=== PATIENT | male | born 1940 | race Caucasian/White ===

== ENCOUNTER 2017-01-15 06:33 | Emergency (ER) | payer MEDICARE ==
[~2017-01-15] VITALS: Ht 167.6 cm; Wt 70.3 kg
[~2017-01-15 06:33] MED LIST: ASPI-COR81 M1 PO; DAYPRO600 M1 PO; KEFLEX500 MG PO; LIPITOR80 MG PO; LISINOPRIL10 MG PO; LOPRESSOR50 MG PO; METOPROLOL SR50 MG PO; PREDNICOT20 MG PO
[2017-01-15 07:05] VITALS: BP 142/68
[2017-01-15 07:14] LABS: BASO % 0.2 % (0.0-1.0); EOS # 0.3 10*3/uL (0.0-0.4); EOS % 3.2 % (1.0-4.0); HEMATOCRIT 35.3 % (42.0-52.0); HEMOGLOBIN 11.7 g/dl (14.0-18.0); IG # 0.1 10*3/uL (0.0-0.1); LYMPH # 0.7 10*3/uL (1.3-4.4); LYMPH % 8.8 % (27.0-41.0); MEAN CELL VOLUME 89.8 fl (80.0-94.0); MEAN CORPUSCULAR HGB 29.8 pg (27.0-31.0); MEAN CORPUSCULAR HGB CONC 33.1 g/dl (33.0-37.0); MEAN PLATELET VOLUME 9.2 fl (9.6-12.3); MONO # 0.6 10*3/uL (0.1-1.0); MONO % 7.8 % (3.0-9.0); NEUT # 6.5 10*3/uL (2.3-7.9); NEUT % 79.3 % (47.0-73.0); PLATELET COUNT AUTOMATED 230 10*3/uL (130-400); RED BLOOD COUNT 3.93 10*6/uL (4.50-5.90); WHITE BLOOD COUNT 8.2 10*3/uL (4.8-10.8)
[2017-01-15 07:42] LABS: BUN 16 mg/dl (7-24); CARBON DIOXIDE 27 mmol/L (21-32); CHLORIDE 104 mmol/L (98-107); EST GLOM FILT AFRICAN AMERICAN > 60 ml/min; GLUCOSE 100 mg/dL (65-99); SODIUM 140 mmol/L (136-145)
[2017-01-15] MEDS ORDERED: MOTION RELIEF25 M2 PO (08:04)
== END 2017-01-15 09:20 | disposition home or self-care (01) ==
LOC: ED 06:33
PROVIDERS: Emergency Medicine
DX: M19.012 Primary osteoarthritis, left shoulder (principal); H83.09 Labyrinthitis, unspecified ear; F17.200 Nicotine dependence, unspecified, uncomplicated; Z88.0 Allergy status to penicillin; Z79.82 Long term (current) use of aspirin

== ENCOUNTER → 2017-04-11 | Outpatient (CLI) | payer MEDICARE ==
[~2017-04-11] MED LIST changes: +MOTION RELIEF25 M2 PO
[2017-04-11 11:07] LABS: BUN 14 mg/dl (7-24); CARBON DIOXIDE 31 mmol/L (21-32); CHLORIDE 103 mmol/L (98-107); CHOLESTEROL 141 mg/dL (<200); EST GLOM FILT AFRICAN AMERICAN > 60 ml/min; GLUCOSE 113 mg/dL (65-99); HDL CHOLESTEROL 49 mg/dl (40-60); LDL CHOLESTEROL 75 mg/dL (9-159); POTASSIUM 4.2 mmol/L (3.5-5.1); SGOT/AST 21 IU/L (3-35); SGPT/ALT 19 U/L (12-78); SODIUM 138 mmol/L (136-145); TRIGLYCERIDES 87 mg/dl (<150); VLDL CHOLESTEROL 17 mg/dL (6-40)
== END | disposition home or self-care (01) ==
LOC: LAB 10:14
PROVIDERS: Internal Medicine Interventional Cardiology
DX: I10 Essential (primary) hypertension (principal); I25.10 Atherosclerotic heart disease of native coronary artery without angina pectoris; E78.2 Mixed hyperlipidemia

== ENCOUNTER → 2019-06-06 | Outpatient (CLI) | payer MEDICARE ==
[2019-06-06 10:26] LABS: ALBUMIN 3.5 gm/dl (3.1-4.5); ALKALINE PHOSPHATASE 126 U/L (45-117); BUN 16 mg/dl (7-24); CHLORIDE 100 mmol/L (98-107); CHOLESTEROL 133 mg/dL (<200); CREATININE 1.07 mg/dL (0.70-1.30); HDL CHOLESTEROL 50 mg/dl (40-60); LDL CHOLESTEROL 70 mg/dL (9-159); POTASSIUM 4.2 mmol/L (3.5-5.1); SGOT/AST 24 IU/L (3-35); SGPT/ALT 21 U/L (12-78); SODIUM 135 mmol/L (136-145); TOTAL PROTEIN 8.3 gm/dL (6.4-8.2); TRIGLYCERIDES 65 mg/dl (<150); VLDL CHOLESTEROL 13 mg/dL (6-40)
== END | disposition home or self-care (01) ==
LOC: LAB 09:31 → US 09:31
PROVIDERS: Internal Medicine Interventional Cardiology
DX: I65.23 Occlusion and stenosis of bilateral carotid arteries (principal); I25.10 Atherosclerotic heart disease of native coronary artery without angina pectoris; I25.2 Old myocardial infarction; E78.2 Mixed hyperlipidemia; I10 Essential (primary) hypertension; I77.9 Disorder of arteries and arterioles, unspecified; R09.89 Other specified symptoms and signs involving the circulatory and respiratory systems; Z95.5 Presence of coronary angioplasty implant and graft; Z98.890 Other specified postprocedural states

== ENCOUNTER → 2019-06-18 | Outpatient (CLI) | payer MEDICARE | END | disposition home or self-care (01) | LOC: CARD 00:45 | DX: I08.1 Rheumatic disorders of both mitral and tricuspid valves (principal); I25.10 Atherosclerotic heart disease of native coronary artery without angina pectoris; I25.2 Old myocardial infarction; E78.2 Mixed hyperlipidemia; I10 Essential (primary) hypertension; I77.9 Disorder of arteries and arterioles, unspecified; Z98.890 Other specified postprocedural states; Z95.5 Presence of coronary angioplasty implant and graft ==

== ENCOUNTER → 2019-12-11 | Outpatient (CLI) | payer MEDICARE | END | disposition home or self-care (01) | LOC: RAD 11:08 | DX: R04.2 Hemoptysis (principal); R07.0 Pain in throat ==

== ENCOUNTER → 2019-12-13 | Outpatient (CLI) | payer MEDICARE ==
[2019-12-13 10:40] LABS: CREATININE 0.94 mg/dL (0.70-1.30)
== END | disposition home or self-care (01) ==
LOC: CT 09:46 → LAB 09:46 → CT 10:00
PROVIDERS: Radiology Diagnostic Radiology
DX: R91.8 Other nonspecific abnormal finding of lung field (principal); R59.9 Enlarged lymph nodes, unspecified; D71 Functional disorders of polymorphonuclear neutrophils; R07.81 Pleurodynia; R04.2 Hemoptysis

== ENCOUNTER → 2019-12-19 | Outpatient (CLI) | payer MEDICARE ==
[2019-12-21 21:03] LABS: TB1 Ag VALUE 0.02 IU/mL (.)
== END | disposition home or self-care (01) ==
LOC: LAB 11:06
PROVIDERS: Internal Medicine Critical Care Medicine
DX: R91.8 Other nonspecific abnormal finding of lung field (principal); R04.2 Hemoptysis

== ENCOUNTER → 2019-12-28 | Day surgery (SDC) | payer MEDICARE ==
[~2019-12-28] VITALS: Ht 170.1 cm; Wt 61.2 kg
[2019-12-28 09:26] VITALS: BP 103/57
[2019-12-28 11:15] VITALS: BP 126/73
[2019-12-28 11:30] VITALS: BP 110/45
[2019-12-28 11:45] VITALS: BP 106/47
[2019-12-28 12:00] VITALS: BP 107/52
[2019-12-28 12:15] VITALS: BP 109/49
[2019-12-29 15:03] LABS: ACID FAST SPEC PROCESSING Concentration (.)
== END | disposition home or self-care (01) ==
LOC: SDC 12-27 11:00
PROVIDERS: Internal Medicine Critical Care Medicine
DX: R91.8 Other nonspecific abnormal finding of lung field (principal); J44.9 Chronic obstructive pulmonary disease, unspecified; I25.10 Atherosclerotic heart disease of native coronary artery without angina pectoris; K21.9 Gastro-esophageal reflux disease without esophagitis; I10 Essential (primary) hypertension; E78.5 Hyperlipidemia, unspecified; R04.2 Hemoptysis; I25.2 Old myocardial infarction; Z87.891 Personal history of nicotine dependence; Z79.82 Long term (current) use of aspirin; Z88.0 Allergy status to penicillin

== ENCOUNTER → 2019-12-31 | Outpatient (CLI) | payer MEDICARE ==
[2019-12-31 08:53] VITALS: BP 114/50
[2019-12-31 10:00] VITALS: BP 101/51; BP 95/49
[2019-12-31 10:15] VITALS: BP 95/49
[2019-12-31 10:30] VITALS: BP 90/49
[2019-12-31 10:45] VITALS: BP 91/45
[2019-12-31 10:57] VITALS: BP 91/45
== END | disposition home or self-care (01) ==
LOC: LAB 00:18 → EDSTATUS 09:30 → SDC 09:30 → LAB 09:30
PROVIDERS: Internal Medicine Critical Care Medicine
DX: R91.8 Other nonspecific abnormal finding of lung field (principal); E78.00 Pure hypercholesterolemia, unspecified; Z85.46 Personal history of malignant neoplasm of prostate; I10 Essential (primary) hypertension; I25.2 Old myocardial infarction; Z88.0 Allergy status to penicillin; Z82.49 Family history of ischemic heart disease and other diseases of the circulatory system; Z82.3 Family history of stroke

== ENCOUNTER 2020-06-09 13:43 | Inpatient (IN) | payer MEDICARE ==
[~2020-06-09] VITALS: Ht 162.6 cm; Wt 47.6 kg
[~2020-06-09 13:43] MED LIST changes: -LOPRESSOR50 MG PO; +Lopressor25 MG PO
[2020-06-09 13:56] VITALS: BP 129/82
[2020-06-09] MEDS ORDERED: DEXAMETHASONE4 MG PO (14:10)
[2020-06-09 15:06] LABS: HEMATOCRIT 40.8 % (42.0-52.0); MEAN CELL VOLUME 81.6 fl (80.0-94.0); MEAN CORPUSCULAR HGB 25.6 pg (27.0-31.0); MEAN CORPUSCULAR HGB CONC 31.4 g/dl (33.0-37.0); MEAN PLATELET VOLUME 8.8 fl (9.6-12.3); PLATELET COUNT AUTOMATED 141 10*3/uL (130-400); RED CELL DISTRI WIDTH 19.4 % (0-14.5)
[2020-06-09 15:18] LABS: ACT PARTIAL THROMBO TIME 25.4 SECONDS (20.0-32.1); INTERNATIONAL NORM RATIO 0.9 (2.0-3.5)
[2020-06-09 15:24] LABS: ALBUMIN 2.5 gm/dl (3.1-4.5); ALKALINE PHOSPHATASE 131 U/L (45-117); BUN 29 mg/dl (7-24); CHLORIDE 98 mmol/L (98-107); CREATININE 0.72 mg/dL (0.70-1.30); LIPASE 133 U/L (73-393); POTASSIUM 4.4 mmol/L (3.5-5.1); SGOT/AST 30 IU/L (3-35); SGPT/ALT 37 U/L (12-78); SODIUM 132 mmol/L (136-145); TOTAL PROTEIN 7.6 gm/dL (6.4-8.2)
[2020-06-09 15:35] LABS: TROPONIN I < 0.015 ng/ml (<0.045)
[2020-06-09 15:41] LABS: BURR CELLS MODERATE; TOTAL CELLS COUNTED 100 #CELLS
[2020-06-09 15:42] LABS: PLATELET SUFFICIENCY NORMAL (NORMAL)
[2020-06-09 17:58] VITALS: BP 132/80
[2020-06-09 19:00] VITALS: BP 124/79
--- NOTE | 2020-06-09 19:00 | NUR ---
A 79, admitted to 5E, under the services of SHAYAN Griffith DO with a diagnosis of HEMOPTYSIS. Chief complaint is HEMOPYTOSIS. Patient arrived via bed from ER. Monitor applied. Initial assessment completed. Vital signs taken and recorded. SHAYAN GRIFFITH DO notified of admission to the unit. Orders received. See assessment for past medical history, medications and allergies. Patient oriented to unit. Clothing/patient valuable form completed. JB FRANCO
--- NOTE | 2020-06-09 19:00 | NUR ---
Hep Lock discontinued, RAN. Site symptomatic, EDEMATOUS. Pressure applied. Sterile dressing applied. JB FRANCO
--- NOTE | 2020-06-09 19:00 | NUR ---
IV started left arm with #20 angiocath after 0 attempts. The IV site was prepped with Chloraprep. Heparin lock attached. IV solution NS infusing at 80 cc/hr. Sterile dressing applied. Patient tolerated precedure well. Procedure performed according to [facility] policy & procedure. JB FRANCO
--- NOTE | 2020-06-09 19:13 | NUR ---
NOTIFIED OF NEW CONSULT. PER IF PATIENT COUGHS UP ANY BLOOD HE WOULD LIKE A SAMPLE TAKEN.
--- NOTE | 2020-06-09 19:27 | NUR ---
AWARE THAT HOME MEDS ARE VERIFIED
--- NOTE | 2020-06-09 19:51 | NUR ---
DICUSSED CARE WITH DAUGHTER TERRANCE.
[2020-06-09 20:00] VITALS: BP 124/75
[2020-06-10] VITALS: BP 126/75
[2020-06-10 06:33] LABS: HEMATOCRIT 35.9 % (42.0-52.0); MEAN CELL VOLUME 82.3 fl (80.0-94.0); MEAN CORPUSCULAR HGB 25.7 pg (27.0-31.0); MEAN CORPUSCULAR HGB CONC 31.2 g/dl (33.0-37.0); MEAN PLATELET VOLUME 8.5 fl (9.6-12.3); PLATELET COUNT AUTOMATED 121 10*3/uL (130-400); RED BLOOD COUNT 4.36 10*6/uL (4.50-5.90); RED CELL DISTRI WIDTH 19.2 % (0-14.5); WHITE BLOOD COUNT 2.5 10*3/uL (4.8-10.8)
[2020-06-10 06:53] LABS: ALBUMIN 2.2 gm/dl (3.1-4.5); ALKALINE PHOSPHATASE 115 U/L (45-117); BUN 21 mg/dl (7-24); CHLORIDE 102 mmol/L (98-107); CREATININE 0.55 mg/dL (0.70-1.30); POTASSIUM 4.7 mmol/L (3.5-5.1); SGOT/AST 32 IU/L (3-35); SGPT/ALT 35 U/L (12-78); SODIUM 132 mmol/L (136-145); TOTAL PROTEIN 6.7 gm/dL (6.4-8.2)
[2020-06-10 06:55] LABS: DOHLE BODIES FEW; PLATELET SUFFICIENCY LOW (NORMAL); TOTAL CELLS COUNTED 100 #CELLS; TOXIC GRANULATION SLIGHT
[2020-06-10 06:56] LABS: BURR CELLS FEW
[2020-06-10 06:59] LABS: THYROID STIM HORMONE (HS) 0.407 uIU/ml (0.358-4.75)
[2020-06-10 08:00] VITALS: BP 130/70
--- NOTE | 2020-06-10 08:28 | NUR ---
PT RESTING IN BED. NO DISTRESS NOTED. WILL MONITOR
[2020-06-10 12:00] VITALS: BP 156/61
--- NOTE | 2020-06-10 12:04 | NUR ---
[employer] in to talk to patient. Patient states lives at HOME with SISTER. There are 10 steps in the home. Physician: LB NUNN Pharmacy: [facility] Home health services: NONE Patient's level of ADLs: INDEPENDENT Patient has working utilities: YES DME: NONE Follow-up physician's appointment after d/c: WILL BE MADE BY HOSPITALIST NURSE DIRECTOR ON DISCHARGE Does patient want to access PORTAL?: NO Discharge plan PT LIVES AT HOME WITH SISTER AND IS INDEPENDENT IN CARE. RECENTLY RECIEVED CHEMO AND RADIATION BUT DOES NOT KNOW EXACT DATES. DENIES HE WILL NEED ANY SERVICES. ON DISCHARGE PLANS TO RETURN HOME WITH SISTER. WILL CONTINUE TO FOLLOW. STATES HE WILL HAVE A RIDE HOME.. JAE ALLEN
[2020-06-10 16:00] VITALS: BP 136/78
[2020-06-10 20:00] VITALS: BP 121/66
[2020-06-11] VITALS: BP 130/65
[2020-06-11 06:14] LABS: HEMATOCRIT 37.5 % (42.0-52.0); MEAN CELL VOLUME 83.3 fl (80.0-94.0); MEAN CORPUSCULAR HGB CONC 31.2 g/dl (33.0-37.0); MEAN PLATELET VOLUME 8.4 fl (9.6-12.3); PLATELET COUNT AUTOMATED 121 10*3/uL (130-400); RED CELL DISTRI WIDTH 19.1 % (0-14.5)
[2020-06-11 06:32] LABS: CHLORIDE 103 mmol/L (98-107); SODIUM 135 mmol/L (136-145)
[2020-06-11 06:40] LABS: BUN 16 mg/dl (7-24); CREATININE 0.66 mg/dL (0.70-1.30)
[2020-06-11 06:59] LABS: BURR CELLS MODERATE; TOTAL CELLS COUNTED 100 #CELLS
[2020-06-11 07:00] LABS: OVALOCYTES FEW; PLATELET SUFFICIENCY LOW (NORMAL); POLYCHROMASIA SLIGHT; TOXIC GRANULATION SLIGHT
[2020-06-11 08:00] VITALS: BP 151/90
--- NOTE | 2020-06-11 08:24 | NUR ---
PHYSICAL THERAPY PT order recieved and chart reviewed. in to see patient at this time and pt had not yet eaten his breakfast yet, just arrived. Will follow after patient eats. Spoke with nsg. Madi Amador SPT Sury Oconnell PT
--- NOTE | 2020-06-11 08:27 | NUR ---
Patient not available for Occupational Therapy at this time as he is eating breakfast. Michelle Lopez OTR/l
[2020-06-11 08:28] LABS: BUN 15 mg/dl (7-24); CHLORIDE 101 mmol/L (98-107); CREATININE 0.68 mg/dL (0.70-1.30); SODIUM 134 mmol/L (136-145)
[2020-06-11 08:29] LABS: POTASSIUM 4.1 mmol/L (3.5-5.1)
--- NOTE | 2020-06-11 08:50 | NUR ---
PT RESTING IN BED. EATING BREAKFAST. NO DISTRESS NOTED. WILL MONITOR
--- NOTE | 2020-06-11 09:00 | NUR ---
PHYSICAL THERAPY Physical Therapy evaluation completed on 5th floor with full evaluation to follow. Recommend physical therapy per plan of care and home with family and home health services upon discharge. Thank you for this referral. Madi Amador SPT Sury Oconnell PT
--- NOTE | 2020-06-11 09:00 | NUR ---
Occupational Therapy evaluation completed on 5 with full eval to follow. Precautions include fall risk; bed/chair alarm,uses no assistive device to ambulate, unsteady in standing at times,low complexity level 73770. Recommend OT per POC and home with sister upon d/c with home health SN, OT,PT referral.s Thank you for this referral. Michelle Lopez OTR/l
--- NOTE | 2020-06-11 11:39 | NUR ---
PT STATES HE WILL RETURN HOME WITH SISTER WHEN MEDICALLY STABLE. TALKED WITH HIM ABOUT HOME HEALTH BUT HE DECLINES AT THIS TIME. WILL CONTINUE TO FOLLOW.
[2020-06-11 12:00] VITALS: BP 140/80
[2020-06-11 16:00] VITALS: BP 124/71
--- NOTE | 2020-06-11 19:00 | NUR ---
PT RESTING IN BED WITH EYES CLOSED AT THIS TIME. RESPS ARE EASY AND NONLABORED. BED LOW, CALL LIGHT WITHIN REACH. WILL CONTINUE TO MONITOR.
[2020-06-11 20:00] VITALS: BP 126/73
[2020-06-12] VITALS: BP 121/74
--- NOTE | 2020-06-12 04:20 | NUR ---
24 HR CHART CHECK COMPLETE.
--- NOTE | 2020-06-12 09:08 | NUR ---
OT NOTE Attempted to see pt this A.M. for OT session and upon arrival pt was on a breathing treatment. Will check back at a later time and continue with POC as able. BILL Dinh/Rajendra
--- NOTE | 2020-06-12 10:47 | NUR ---
RECYCLING ATTENDANT FAXED PALLIATIVE ORDER TO [facility].
[2020-06-12] MEDS ORDERED: PROAIR HFA8.5 GM INH (10:54)
[2020-06-12] MEDS ORDERED: DOXYCYCLINE100 M3 PO (10:54)
--- NOTE | 2020-06-12 11:47 | NUR ---
Discharge instructions reviewed with patient/family. Patient receptive and verbalizes understanding. Follow-up care arranged. Written instructions given to patient/family. KJ MILES
--- NOTE | 2020-06-12 13:32 | NUR ---
HEALTHCARE ADMINISTRATOR RECEIVED CALL FROM [facility] REQUESTING CLINICAL. HEALTHCARE ADMINISTRATOR FAXED CLINICAL INFORMATION TO [facility].
--- NOTE | 2020-06-13 13:17 | NUR ---
OCCUPATIONAL THERAPY CO-SIGN I approve of the Occupational Therapy notes written above. DERREK SON OTR/Rajendra
== END 2020-06-12 11:47 | disposition home or self-care (01) | DRG 177 ==
LOC: ED 13:43 → EDHOLD 17:31 → 5E 18:15
PROVIDERS: Emergency Medicine; Hospitalist; Podiatrist; ADMIT Internal Medicine; ATTEND Internal Medicine
DX: J69.0 Pneumonitis due to inhalation of food and vomit (principal); E43 Unspecified severe protein-calorie malnutrition; D61.810 Antineoplastic chemotherapy induced pancytopenia; J44.0 Chronic obstructive pulmonary disease with (acute) lower respiratory infection; R04.2 Hemoptysis; E87.1 Hypo-osmolality and hyponatremia; C34.91 Malignant neoplasm of unspecified part of right bronchus or lung; Z68.1 Body mass index [BMI] 19.9 or less, adult; A15.0 Tuberculosis of lung; E86.0 Dehydration; R73.9 Hyperglycemia, unspecified; E78.5 Hyperlipidemia, unspecified; M19.012 Primary osteoarthritis, left shoulder; I10 Essential (primary) hypertension; T45.1X5A Adverse effect of antineoplastic and immunosuppressive drugs, initial encounter; E78.00 Pure hypercholesterolemia, unspecified; Z88.0 Allergy status to penicillin; Z82.49 Family history of ischemic heart disease and other diseases of the circulatory system; Z82.3 Family history of stroke; I25.2 Old myocardial infarction; Z79.899 Other long term (current) drug therapy